=== PATIENT | female | born 1990 | race Caucasian/White ===

== ENCOUNTER 2017-02-08 14:49 | Emergency (ER) | payer OTHER ==
[~2017-02-08] VITALS: Wt 81.6 kg
[~2017-02-08 14:49] MED LIST: ADIPEX-P37.5 MG PO; BACTRIM DS 8001 TA1 PO; BACTRIM DS 8001 TAB PO; BIAXIN500 MG PO; CEPHALEXIN500 M1 PO; CLARITIN10 MG PO; CLINDAMYCIN HC300 MG PO; CYCLOBENZAPRINE5 M3 PO; FLEXERIL10 MG PO; FLONASE ALLERG9.9 ML NAS; HYDROCODONE BIT1 T11 PO; KEFLEX500 MG PO; LOMOTIL 0.025 M1 TA1 PO; MEDROL DOSEPAK4 MG PO; MOTRIN800 MG PO; Motrin,Rufen800 MG PO; PREDNISONE10 MG PO; PYRIDIUM200 MG PO; ROBITUSSIN AC 110 ML PO; ZANTAC 150150 MG PO; ZOFRAN ODT4 MG SL
== END 2017-02-08 16:03 | disposition home or self-care (01) ==
LOC: ED 14:49
DX: H01.004 Unspecified blepharitis left upper eyelid (principal); F17.200 Nicotine dependence, unspecified, uncomplicated

== ENCOUNTER 2017-02-13 16:59 | Emergency (ER) | payer OTHER ==
[~2017-02-13] VITALS: Ht 165.1 cm; Wt 81.6 kg
[2017-02-13 17:34] LABS: BASO # 0.1 10*3/uL (0.0-0.1); BASO % 0.6 % (0.0-1.0); EOS # 0.3 10*3/uL (0.0-0.4); EOS % 2.5 % (1.0-4.0); HEMATOCRIT 45.3 % (37.0-47.0); HEMOGLOBIN 15.7 g/dl (12.0-16.0); LYMPH % 30.5 % (27.0-41.0); MEAN CELL VOLUME 87.8 fl (81.0-99.0); MEAN CORPUSCULAR HGB 30.4 pg (27.0-31.0); MEAN CORPUSCULAR HGB CONC 34.7 g/dl (33.0-37.0); MONO # 0.6 10*3/uL (0.1-1.0); MONO % 5.7 % (3.0-9.0); NEUT % 60.5 % (47.0-73.0); PLATELET COUNT AUTOMATED 219 10*3/uL (130-400); RED BLOOD COUNT 5.16 10*6/uL (4.10-5.10); RED CELL DISTRI WIDTH 13.2 % (0-14.5); WHITE BLOOD COUNT 9.9 10*3/uL (4.8-10.8)
[2017-02-13 17:49] LABS: ALBUMIN 4.1 gm/dl (3.1-4.5); ALKALINE PHOSPHATASE 77 U/L (45-117); BILIRUBIN, TOTAL 0.2 mg/dl (0.2-1.0); BUN 10 mg/dl (7-24); CARBON DIOXIDE 23 mmol/L (21-32); CHLORIDE 106 mmol/L (98-107); EST GLOM FILT AFRICAN AMERICAN > 60 ml/min; GLUCOSE 90 mg/dL (65-99); POTASSIUM 3.8 mmol/L (3.5-5.1); SGOT/AST 24 IU/L (3-35); SGPT/ALT 24 U/L (12-78); SODIUM 141 mmol/L (136-145); TOTAL PROTEIN 7.9 gm/dL (6.4-8.2)
== END 2017-02-13 18:12 | disposition left against medical advice (07) ==
LOC: ED 16:59
PROVIDERS: Nurse Practitioner Family
DX: R10.31 Right lower quadrant pain (principal); R11.0 Nausea; F17.200 Nicotine dependence, unspecified, uncomplicated

== ENCOUNTER 2017-05-01 21:39 | Emergency (ER) | payer OTHER ==
[~2017-05-01] VITALS: Ht 165.1 cm; Wt 81.6 kg
[2017-05-01 22:17] LABS: BASO # 0.1 10*3/uL (0.0-0.1); BASO % 0.4 % (0.0-1.0); EOS # 0.2 10*3/uL (0.0-0.4); EOS % 1.9 % (1.0-4.0); HEMATOCRIT 48.2 % (37.0-47.0); HEMOGLOBIN 16.7 g/dl (12.0-16.0); LYMPH # 1.9 10*3/uL (1.3-4.4); LYMPH % 15.4 % (27.0-41.0); MEAN CELL VOLUME 90.3 fl (81.0-99.0); MEAN CORPUSCULAR HGB 31.3 pg (27.0-31.0); MEAN CORPUSCULAR HGB CONC 34.6 g/dl (33.0-37.0); MONO # 1.1 10*3/uL (0.1-1.0); MONO % 8.7 % (3.0-9.0); NEUT # 9.2 10*3/uL (2.3-7.9); NEUT % 73.4 % (47.0-73.0); PLATELET COUNT AUTOMATED 202 10*3/uL (130-400); RED BLOOD COUNT 5.34 10*6/uL (4.10-5.10); RED CELL DISTRI WIDTH 14.3 % (0-14.5); WHITE BLOOD COUNT 12.5 10*3/uL (4.8-10.8)
[2017-05-01 22:31] LABS: ALBUMIN 4.1 gm/dl (3.1-4.5); ALKALINE PHOSPHATASE 83 U/L (45-117); BUN 14 mg/dl (7-24); CHLORIDE 104 mmol/L (98-107); CREATININE 0.82 mg/dL (0.55-1.02); LIPASE 118 U/L (73-393); POTASSIUM 3.9 mmol/L (3.5-5.1); SGOT/AST 25 IU/L (3-35); SGPT/ALT 23 U/L (12-78); SODIUM 139 mmol/L (136-145); TOTAL PROTEIN 8.2 gm/dL (6.4-8.2)
[2017-05-01 22:48] LABS: BILIRUBIN NEGATIVE (NEGATIVE); BLOOD NEGATIVE (NEGATIVE); CLARITY SL CLOUDY (CLEAR); COLOR YELLOW (YELLOW); GLUCOSE NEGATIVE (NEGATIVE); KETONE NEGATIVE (NEGATIVE); LEUKO ESTERASE NEGATIVE (NEGATIVE); NITRITE NEGATIVE (NEGATIVE); UROBILINOGEN 0.2 E.U./dl (0.2-1.0)
[2017-05-01 22:55] LABS: BACTERIA TRACE; RBC 0-2 rbc/hpf (0-2)
[2017-05-01] MEDS ORDERED: PROTONIX40 MG PO (23:10)
== END 2017-05-01 23:29 | disposition home or self-care (01) ==
LOC: ED 21:39
PROVIDERS: Nurse Practitioner Family
DX: K21.9 Gastro-esophageal reflux disease without esophagitis (principal); F17.200 Nicotine dependence, unspecified, uncomplicated; Z90.89 Acquired absence of other organs; Z98.51 Tubal ligation status

== ENCOUNTER 2018-05-20 08:23 | Emergency (ER) | payer OTHER ==
[~2018-05-20] VITALS: Ht 165.1 cm; Wt 83.9 kg
[~2018-05-20 08:23] MED LIST changes: +ATIVAN1 MG PO; +PROTONIX40 MG PO
[2018-05-20] MEDS ORDERED: VIBRAMYCIN100 MG PO (13:16)
== END 2018-05-20 13:19 | disposition home or self-care (01) ==
LOC: ED 08:23
DX: J40 Bronchitis, not specified as acute or chronic (principal); L02.213 Cutaneous abscess of chest wall; K21.9 Gastro-esophageal reflux disease without esophagitis

== ENCOUNTER 2018-05-28 14:33 | Emergency (ER) | payer OTHER ==
[~2018-05-28] VITALS: Ht 165.1 cm; Wt 83.9 kg
[~2018-05-28 14:33] MED LIST changes: +VIBRAMYCIN100 MG PO
[2018-05-28] MEDS ORDERED: ZOFRAN4 MG PO (14:42)
[2018-05-28] MEDS ORDERED: SEPTDS PO (14:42)
[2018-05-28] MEDS ORDERED: KEFLEX500 M1 PO (14:42)
== END 2018-05-28 15:00 | disposition home or self-care (01) ==
LOC: ED 14:33
DX: L02.213 Cutaneous abscess of chest wall (principal); R03.0 Elevated blood-pressure reading, without diagnosis of hypertension; K21.9 Gastro-esophageal reflux disease without esophagitis; Z98.51 Tubal ligation status

== ENCOUNTER 2020-01-03 16:50 | Emergency (ER) | payer OTHER ==
[~2020-01-03] VITALS: Ht 165.1 cm; Wt 88.5 kg
[~2020-01-03 16:50] MED LIST changes: +KEFLEX500 M1 PO; +SEPTDS PO; +ZOFRAN4 MG PO
[2020-01-03 18:15] LABS: BASO # 0.1 10*3/uL (0.0-0.1); BASO % 0.6 % (0.0-1.0); EOS % 0.5 % (1.0-4.0); HEMATOCRIT 48.5 % (37.0-47.0); LYMPH # 1.8 10*3/uL (1.3-4.4); LYMPH % 21.8 % (27.0-41.0); MEAN CELL VOLUME 94.2 fl (81.0-99.0); MEAN CORPUSCULAR HGB 32.2 pg (27.0-31.0); MEAN CORPUSCULAR HGB CONC 34.2 g/dl (33.0-37.0); MEAN PLATELET VOLUME 10.7 fl (9.6-12.3); MONO # 0.7 10*3/uL (0.1-1.0); MONO % 8.1 % (3.0-9.0); NEUT # 5.8 10*3/uL (2.3-7.9); NEUT % 68.6 % (47.0-73.0); PLATELET COUNT AUTOMATED 201 10*3/uL (130-400); RED BLOOD COUNT 5.15 10*6/uL (4.10-5.10); RED CELL DISTRI WIDTH 13.6 % (0-14.5); WHITE BLOOD COUNT 8.4 10*3/uL (4.8-10.8)
[2020-01-03 18:33] LABS: ALBUMIN 4.2 gm/dl (3.1-4.5); ALKALINE PHOSPHATASE 66 U/L (45-117); BUN 10 mg/dl (7-24); CHLORIDE 106 mmol/L (98-107); CREATININE 0.89 mg/dL (0.55-1.02); POTASSIUM 3.6 mmol/L (3.5-5.1); SGOT/AST 25 IU/L (3-35); SGPT/ALT 30 U/L (12-78); SODIUM 137 mmol/L (136-145); TOTAL PROTEIN 8.1 gm/dL (6.4-8.2)
[2020-01-03 18:36] LABS: BETA-HCG, QUANT < 1.0 mIU/mL (1-3)
== END 2020-01-03 20:46 | disposition home or self-care (01) ==
LOC: ED 16:50
PROVIDERS: Emergency Medicine
DX: R20.8 Other disturbances of skin sensation (principal); Z03.818 Encounter for observation for suspected exposure to other biological agents ruled out; R23.8 Other skin changes; R20.2 Paresthesia of skin; K21.9 Gastro-esophageal reflux disease without esophagitis; F41.9 Anxiety disorder, unspecified; Z79.2 Long term (current) use of antibiotics; Z79.899 Other long term (current) drug therapy; Z98.890 Other specified postprocedural states; Z98.51 Tubal ligation status

== ENCOUNTER → 2022-10-22 | Outpatient (CLI) | payer OTHER | END | disposition home or self-care (01) | LOC: MAMMO 12:45 | PROVIDERS: ATTEND Nurse Practitioner Women's Health | DX: N64.52 Nipple discharge (principal); R53.83 Other fatigue ==

== ENCOUNTER → 2022-11-06 | Outpatient (CLI) | payer OTHER | END | disposition home or self-care (01) | LOC: US 00:58 | PROVIDERS: ATTEND Nurse Practitioner Women's Health | DX: D25.2 Subserosal leiomyoma of uterus (principal); N93.0 Postcoital and contact bleeding; N94.9 Unspecified condition associated with female genital organs and menstrual cycle ==

== ENCOUNTER → 2025-01-30 | Outpatient (CLI) | payer OTHER ==
[2025-01-30 15:24] LABS: BASO % 0.7 % (0.0-1.0); EOS # 0.1 10*3/uL (0.0-0.4); EOS % 0.9 % (1.0-4.0); MEAN CELL VOLUME 85.7 fl (81.0-99.0); MEAN CORPUSCULAR HGB 26.8 pg (27.0-31.0); MEAN CORPUSCULAR HGB CONC 31.3 g/dl (33.0-37.0); MONO # 0.3 10*3/uL (0.1-1.0); MONO % 5.9 % (3.0-9.0); NEUT # 3.6 10*3/uL (2.3-7.9); NEUT % 62.2 % (47.0-73.0); PLATELET COUNT AUTOMATED 304 10*3/uL (130-400); RED BLOOD COUNT 4.67 10*6/uL (4.10-5.10); RED CELL DISTRI WIDTH 15.5 % (0-14.5); WHITE BLOOD COUNT 5.7 10*3/uL (4.8-10.8)
[2025-01-30 15:41] LABS: ALKALINE PHOSPHATASE 70 U/L (46-116); BUN 11 mg/dl (9-23); CHLORIDE 107 mmol/L (98-107); CHOLESTEROL 167 mg/dL (<200); LDL CHOLESTEROL 99 mg/dL (9-159); POTASSIUM 3.8 mmol/L (3.4-5.1); SGPT/ALT 18 U/L (5-49); TOTAL PROTEIN 7.2 gm/dL (6.0-8.0); TRIGLYCERIDES 73 mg/dl (<150)
[2025-01-30 15:42] LABS: VITAMIN D, 25-HYDROXY 20.9 ng/mL (30-100)
== END | disposition home or self-care (01) ==
LOC: RHCWE 15:14
PROVIDERS: ATTEND Nurse Practitioner Family
DX: Z13.1 Encounter for screening for diabetes mellitus (principal); Z13.220 Encounter for screening for lipoid disorders; Z13.29 Encounter for screening for other suspected endocrine disorder; Z76.89 Persons encountering health services in other specified circumstances; Z79.899 Other long term (current) drug therapy; R53.82 Chronic fatigue, unspecified